=== PATIENT | male | born 1975 | race Two or more races ===

== ENCOUNTER 2022-09-03 13:53 | Emergency (ER) | payer OTHER ==
[~2022-09-03] VITALS: Ht 177.8 cm; Wt 82.7 kg
[~2022-09-03 13:53] MED LIST: DAPA10TA PO; METF-900 PO; NATE120T6 PO; SITA100T15 PO
[2022-09-03 14:57] VITALS: BP 120/84
== END 2022-09-03 16:13 | disposition home or self-care (01) ==
LOC: ER 13:53
DX: T83.028A Displacement of other urinary catheter, initial encounter (principal); E11.9 Type 2 diabetes mellitus without complications; Z79.899 Other long term (current) drug therapy
CPT/HCPCS: 99281